=== PATIENT | male | born 1950 | race Caucasian/White ===

== ENCOUNTER → 2018-01-01 | Outpatient (CLI) | payer MEDICARE, OTHER ==
[~2018-01-01] MED LIST: ALPR-448 PO; ASPI-1471 PO; ATOR-1 PO; ATOR20TA22 PO; ATOR20TA65 PO; ATOR40TA69 PO; CITA-139 PO; DOC100 PO; ESC10 PO; FLU IM; FLU45SYR17 IM; PER PO; ROS10 PO; TAM4 PO; TEMA7.5C14 PO
[2018-01-01 08:17] LABS: PLATELET COUNT, AUTOMATED 212 K/uL (150-450)
[2018-01-01 10:08] LABS: LDL CHOLESTEROL 63 mg/dl
== END ==
LOC: LAB 08:03
PROVIDERS: ATTEND Emergency Medicine
DX: R73.03 Prediabetes (principal); E78.5 Hyperlipidemia, unspecified; D75.89 Other specified diseases of blood and blood-forming organs
CPT/HCPCS: 36415; 82040; 82247; 82310; 82374; 82435; 82465; 82565; 82947; 83036; 83718; 84075; 84132; 84155; 84295; 84450; 84460; 84478; 84520; 85025

== ENCOUNTER → 2018-08-22 | Outpatient (CLI) | payer MEDICARE, OTHER ==
[~2018-08-22] MED LIST changes: -CITA-139 PO; +CITA-145 PO; +PNEU0.5D3 IM
== END ==
LOC: LAB 08:45
PROVIDERS: ATTEND Emergency Medicine
DX: R73.03 Prediabetes (principal)
CPT/HCPCS: 36415; 82607; 83036

== ENCOUNTER → 2019-01-08 | Outpatient (CLI) | payer MEDICARE, OTHER ==
[2019-01-08 08:28] LABS: PLATELET COUNT, AUTOMATED 234 K/uL (150-450)
[2019-01-08 10:13] LABS: LDL CHOLESTEROL 77 mg/dl
== END ==
LOC: LAB 08:15
PROVIDERS: ATTEND Emergency Medicine
DX: N20.0 Calculus of kidney (principal); E78.5 Hyperlipidemia, unspecified; R73.03 Prediabetes
CPT/HCPCS: 36415; 82040; 82247; 82310; 82374; 82435; 82465; 82565; 82947; 83036; 83718; 84075; 84132; 84155; 84295; 84450; 84460; 84478; 84520; 85025

== ENCOUNTER → 2019-02-18 | Outpatient (CLI) | payer MEDICARE, OTHER ==
[~2019-02-18] MED LIST changes: +PNEI IM
== END ==
LOC: LAB 08:02
PROVIDERS: ATTEND Emergency Medicine
DX: R74.0 Nonspecific elevation of levels of transaminase and lactic acid dehydrogenase [LDH] (principal)
CPT/HCPCS: 36415; 82040; 82247; 82248; 84075; 84155; 84450; 84460